=== PATIENT | female | born 1985 | race Caucasian/White ===

== ENCOUNTER 2017-08-20 13:43 | Day surgery (SDC) | payer BC ==
[2017-08-20 15:30] LABS: Amnisure Test No Membranes Rupture (No Rupture)
[2017-08-20 15:40] VITALS: BP 108/73; TEMP 98.7; BMI 23.6
== END 2017-08-20 16:45 | disposition home or self-care (01) ==
LOC: L&D/OP 13:43
PROVIDERS: ATTEND Advanced Practice Midwife
DX: O26.893 Other specified pregnancy related conditions, third trimester (principal); O47.1 False labor at or after 37 completed weeks of gestation; O99.89 Other specified diseases and conditions complicating pregnancy, childbirth and the puerperium; J45.909 Unspecified asthma, uncomplicated; G43.909 Migraine, unspecified, not intractable, without status migrainosus; Z3A.41 41 weeks gestation of pregnancy; Z79.899 Other long term (current) drug therapy; Z91.040 Latex allergy status
CPT/HCPCS: 84112

== ENCOUNTER 2017-08-22 06:00 | Inpatient (IN) | payer BC ==
[2017-08-22] MEDS: Lactated Ringer's 1,000 ML IV SCH ×2 (10:15→14:43)
[2017-08-22] MEDS ORDERED: LR / Pitocin 40 units/1000 ml 1,000 ML IV PRN (10:19)
[2017-08-22] MEDS ORDERED: LR 500 ML/Oxytocin 10 units 500 ML IV SCH (10:19)
[2017-08-22] MEDS ORDERED: Ondansetron HCl/PF 4 MG/2 ML Vial IVP PRN ×2 (10:19→14:22)
[2017-08-22] MEDS ORDERED: HYDROcodone/Acetaminophen 5/325 mg Tablet PO PRN ×2 (10:19)
[2017-08-22] MEDS ORDERED: Promethazine HCl 25 MG/ML VIAL IM PRN ×2 (10:19→14:22)
[2017-08-22] MEDS ORDERED: Lidocaine 1% (PF) 30 ML VIAL SC PRN (10:19)
[2017-08-22] MEDS ORDERED: Ibuprofen 800 MG TAB PO PRN (10:19)
[2017-08-22] MEDS ORDERED: Misoprostol 200 MCG TAB PR PRN (10:19)
--- NOTE | 2017-08-22 10:19 | PDOC.LDHP ---
Labor and Delivery H&P Chief complaint: scheduled induction (for postdates), other HPI: IOL for postdates Current gestational age (weeks): 41 Due date: 08/14/17 Dating criteria: last menstrual period (verified with first trimester us) Grav: 4 Para: 3 OB History Details: Rh - Current complications: none Abnormal US findings: No Past Medical History: Asthma, Rh negative. migraines. Poor dentition Current medications: pre- vitamins Previous surgical history: none Allergies/Adverse Reactions: Allergies Allergy/AdvReac Type Severity Reaction Status Date / Time latex Allergy Intermediate Hives Verified 08/22/17 10:21 Social history: none - Physical Exam Vital signs reviewed and normal: yes General: NAD Heart: RRR Lungs: CTAB Abdomen: gravid Extremeties: trace edema FHT: category 1 - Vaginal Exam cm dilated: 3 Effacement: 50% Station: -3 - OB Labs Blood type: O RH: negative HIV: negative RPR: negative HEPSAg: negative 1 hour GCT: negative GBS: negative Additional Labs: rubella immune - Assessment L&D Assessment: elective induction at term (for postdates) - Plan Plan: admit to L&D -: pitocin IOL
[2017-08-22 10:24] VITALS: BMI 24.3
[2017-08-22 10:29] LABS: Red Blood Cell (RBC) Count 4.13 mill/uL (4.20-5.40); White Blood Cell (WBC) Count 10.1 thou/uL (4.8-10.8)
[2017-08-22] MEDS ORDERED: Bupivacaine/Epinephrine 0.25% 30 ML VIAL ONE (11:11)
[2017-08-22] MEDS ORDERED: FLU VACC QS2017-18 36 mo. & older 0.5 ML SYRINGE IM ONE (11:30)
[2017-08-22] MEDS ORDERED: Fentanyl 100 MCG/2 ML VIAL ONE ×2 (13:46→14:01)
[2017-08-22] MEDS ORDERED: Fentanyl 4 mcg/Marc 0.1% Cadd 100 ML ONE (13:48)
[2017-08-22] MEDS ORDERED: ePHEDrine/0.9% NaCl/PF SYRINGE 50 mg/10 ml SLOW IVP PRN (14:22)
[2017-08-22] MEDS ORDERED: Naloxone HCl 0.4 mg/ml Vial IVP PRN ×2 (14:22)
[2017-08-22] MEDS ORDERED: Lactated Ringer's 500 ML IV PRN (14:22)
[2017-08-22] MEDS ORDERED: Acetaminophen 325 MG TAB PO PRN (14:22)
[2017-08-22] MEDS ORDERED: diphenhydrAMINE HCl 50 MG/ML 1 ML VIAL IVP PRN (14:22)
[2017-08-22] MEDS ORDERED: Eucerin (Mineral Oil/Petrolatum,White) 30 gm Jar TOP PRN (14:22)
[2017-08-22] MEDS ORDERED: Fentanyl 4mcg/Marcaine 0.1% Cassette 100 ML EPIDURAL SCH (14:30)
[2017-08-22] MEDS ORDERED: Communication Order-Pharmacy FS SCH (14:30)
[2017-08-22] MEDS ORDERED: Misoprostol 200 MCG TAB ONE (16:35)
--- NOTE | 2017-08-22 17:14 | PDOC.LDPN ---
Labor & Delivery Progress Note - Subjective Subjective: comfortable - Objective Vital signs reviewed and normal: yes General: resting Dilation: 5 Effacement: 100% Station: -1 FHT: category 1 [place] contractions every: q2-3 Other exam findings: Nick bleeding and clots in cervix on exam. Dr. Caceres to bedside AROM: clear fluid IUPC placed: yes FSE placed: yes - Assessment (1) Elective induction of labor planned Code(s): [id number] - Current Visit: Yes Status: Acute (2) Multigravida Code(s): Z64.1 - PROBLEMS RELATED TO MULTIPARITY Current Visit: Yes Status: Acute -: consulted with Dr. Caceres. Dr. Caceres examined pt and AROM on exam. IUPC placed and FSE. CNM will stay on unit. continue to observe patient closely with continuous monitoring. Anticipate or CS if indicated KB stain after delivery
[2017-08-22 18:10] LABS: Amphetamine Not Detected (NotDetected); Methadone Not Detected (NotDetected); Methamphetamine Not Detected (NotDetected)
--- NOTE | 2017-08-22 20:34 | PDOC.OPDEL ---
OB Operative/Delivery Note Delivery Dr/Surgeon: Nayla forbes CNM Assist: Dr. Caceres at bedside for delivery Pre-Delivery Diagnosis: elective induction Procedure/Post Delivery Dx: spontaneous vaginal delivery Weeks gestation: 41 Anesthesia: epidural - Findings A Sex: male Weight: 8 lb 1 oz - 5 min: 8 - 10 min: 9 - Additional Findings/Plan Placenta delivered: spontaneous Repaired Obstetrical Laceration: none Estimated blood loss: 450ml total from antepartum and delivery Compilations/Other Findings: Bleeding prior to delivery approximately 250mls Adherent clot on maternal side of placenta - sent to pathology to r/o partial abruption KB stain ordered Pt is o- blood type. Post delivery plan: routine recovery
[2017-08-23] MEDS ORDERED: Milk Of Magnesia 30 ML UDCUP PO PRN (00:17)
[2017-08-23] MEDS ORDERED: LR / Pitocin 40 units/1000 ml 1,000 ML IV SCH (00:17)
[2017-08-23] MEDS ORDERED: HYDROcodone/Acetaminophen 5/325 mg Tablet PO PRN ×2 (00:17)
[2017-08-23] MEDS ORDERED: Bisacodyl 10 MG SUPP PR PRN (00:17)
[2017-08-23] MEDS ORDERED: Adacel (T-DAP) 0.5 ML VIAL IM ONE (00:17)
[2017-08-23] MEDS: Docusate (Surfak) 240 MG CAP PO SCH ×3 (03:16→21:05)
[2017-08-23] MEDS: Ibuprofen 800 MG TAB PO SCH ×4 (03:16→21:05)
[2017-08-23 04:56] LABS: Hematocrit 30.9 % (36.0-47.0); Mean Platelet Volume 6.2 fL (7.4-10.4); Red Blood Cell (RBC) Count 3.33 mill/uL (4.20-5.40)
[2017-08-23] MEDS: Ferrous Sulfate 325 MG TAB PO SCH ×2 (08:06→13:09)
--- NOTE | 2017-08-23 09:56 | PDOC.PP ---
Post Progress Note Post Day #: 1 -: pt is sore PO intake tolerated: yes Flatus: yes Ambulation: yes Vital Signs (12 hours) Temp Pulse Resp BP Pulse Ox 08/23/17 07:40 98.1 F 62 18 08/23/17 07:18 98.1 F 62 18 96/59 L 98 08/23/17 03:26 98.5 F 64 20 111/70 08/23/17 00:00 98.0 F 74 20 98/57 L 08/22/17 22:55 98.0 F 74 20 105/69 Weight Weight 146 lb - Physical Examination General: NAD Cardiovascular: no m/r/g, RRR Respiratory: clear to ausculation bilateral Abdominal: + bowel sounds, lochia (minimal, 2 marble sized clots) Fundus firm & at: umbilicus Extremities: negative homans (B) Skin: no rash Psychiatric: A&Ox3 Result Diagrams: 08/23/17 04:30 Additional Labs: Post Labs Blood Type O NEGATIVE 08/22/17 10:15 Hep Bs Antigen Non-Reactive S/CO (NonReactive) 08/22/17 10:15 (1) Elective induction of labor planned Code(s): [id number] - Status: Acute (2) Multigravida Code(s): Z64.1 - PROBLEMS RELATED TO MULTIPARITY Status: Acute (3) Placenta abruption, delivered, current hospitalization Code(s): O45.90 - PREMATURE SEPARATION OF PLACENTA, UNSP, UNSP TRIMESTER Status: Acute (4) (spontaneous vaginal delivery) Code(s): O80 - ENCOUNTER FOR FULL-TERM UNCOMPLICATED DELIVERY Status: Acute - Assessment/Plan A: G4 now p4 PPD#! s/p complicated by differential diagnosis of partial placental abruption P: discharge home tomorrow Placenta pathology rhogram for Rh negative mother. screen was negative - no KB stain required. Pt only will need one ampule of Rhogam.
[2017-08-24] MEDS: Ibuprofen 800 MG TAB PO SCH (06:19)
[2017-08-24] MEDS: Ferrous Sulfate 325 MG TAB PO SCH (08:51)
[2017-08-24] MEDS: Docusate (Surfak) 240 MG CAP PO SCH (08:51)
[2017-08-24 11:21] VITALS: BP 107/57; TEMP 97.8
--- NOTE | 2017-08-24 19:20 | DIS ---
DATE OF ADMISSION: 08/22/2017 DATE OF DISCHARGE: 08/24/2017 ADMITTING DIAGNOSIS: Induction of labor at term at 41 weeks for postdates. DISCHARGE DIAGNOSIS: Induction of labor at term at 41 weeks for postdates. PROCEDURE: Term spontaneous vaginal delivery. CONSULTATIONS: None. HOSPITAL COURSE: The patient is a 32-year-old G4, now P4 female with an intrauterine of 4 1 weeks, who was admitted to the hospital on 08/22/2017, for a post-dates induction of labor. The p atient had a successful vaginal without complications for her obstetric delivery. For more de tails of her delivery, please refer to the delivery note. Patient's postdelivery hemoglobin is 10.7 , hematocrit 30.9, platelets of 210,000. Patient's course has been uncomplicated. Today , she reports she has been tolerating p.o. well, voiding on her own, having decreased lochia and goo d pain control. PHYSICAL EXAMINATION: VITAL SIGNS: Today, blood pressure 109/55, temperature 98.0, pulse is 77, respiratory rate of 18. GENERAL: She appears to be in no acute distress. She is alert and oriented, and cooperative and pl easant to interact with. HEENT: Head is normocephalic, atraumatic. ABDOMEN: Soft. Fundus is firm at the umbilicus -2. EXTREMITIES: Nontender, nonedematous. The patient is being discharged to home on ibuprofen as needed for pain, #30. She has instructions to follow up with her primary OB Ms. Gina Louie, in 6 weeks. She has also been given instructio ns to seek medical attention sooner if she experiences fever, increasing pain or bleeding.
== END 2017-08-24 12:05 | disposition home or self-care (01) | DRG 774 ==
LOC: L&D 09:23 → 3SW 08-23 00:11
PROVIDERS: ADMIT Student in an Organized Health Care Education/Training Program; ATTEND Student in an Organized Health Care Education/Training Program
PROC: 10E0XZZ Delivery of Products of Conception, External Approach (ICD-10-PCS; principal; 2017-08-22)
PROC: 10907ZC Drainage of Amniotic Fluid, Therapeutic from Products of Conception, Via Natural or Artificial Opening (ICD-10-PCS; 2017-08-22)
PROC: 3E0P3VZ Introduction of Hormone into Female Reproductive, Percutaneous Approach (ICD-10-PCS; 2017-08-22)
PROC: 10H07YZ Insertion of Other Device into Products of Conception, Via Natural or Artificial Opening (ICD-10-PCS; 2017-08-22)
PROC: 3E0334Z Introduction of Serum, Toxoid and Vaccine into Peripheral Vein, Percutaneous Approach (ICD-10-PCS; 2017-08-22)
DX: O48.0 Post-term pregnancy (principal); O45.93 Premature separation of placenta, unspecified, third trimester; Z3A.41 41 weeks gestation of pregnancy; O69.81X0 Labor and delivery complicated by cord around neck, without compression, not applicable or unspecified; Z37.0 Single live birth; Z64.1 Problems related to multiparity; N88.8 Other specified noninflammatory disorders of cervix uteri
CPT/HCPCS: 36415; 80306; 85027; 85461; 86780; 87340; 88307; 90384; 96372; J3010; J7120